=== PATIENT | female | born 1965 | race Caucasian/White ===

== ENCOUNTER 2021-04-04 08:32 | Emergency (ER) | payer BC, SELFPAY ==
[2021-04-04] VITALS (28 sets, daily range): BP systolic 128–160; BP diastolic 67–90; PULSE 60–90; RESP 14–22; TEMP 36.6; O2SAT 95–99
--- NOTE | 2021-04-04 08:30 | RT.EKG_ITS ---
APPROVED REPORT Exam: Resting ECG Reason for Exam: chest pain Patient Location: E HR:83 bpm ECG Measurements Heart Rate 83 AXIS W[place] 139 P 55 QRSd 94 QRS 26 QT 387 T 40 QTc 455 Conclusion Sinus rhythm...normal P axis, V-rate 60- 99 STD precordial leads, no prior, no STEMI, non-diagnostic EKG I have reviewed and interpreted ECG and agree with software generated interpretation.
[2021-04-04 08:57] LABS: Abs Immature Grans 0.01 10^3/uL (0.0-0.06); Absolute Basophil Count 0.04 10^3/uL (0.0-0.2); Absolute Eosinophil Count 0.07 10^3/uL (0.0-0.7); Absolute Lymphocyte Count 1.57 10^3/uL (1.2-3.4); Absolute Monocyte Count 0.58 10^3/uL (0.1-0.8); Basophils % 0.6; Eosinophils % 1.1; HCT 43.4 % (36.0-46.0); Immature Grans % 0.2; Lymphocytes % 24.3; MCH 28.3 pg (27.0-33.0); MCHC 32.3 % (32.0-36.0); MCV 87.9 fL (80-95); Neutrophils % 64.8; Nucleated RBC 0 %; Platelet Count 314 10^3/uL (130-400); RBC 4.94 10^6/uL (3.93-5.22); RDW 12.6 % (11.7-14.6); RDW-SD 40.6 fL; WBC 6.47 10^3/uL (4.4-10.8)
--- NOTE | 2021-04-04 09:00 | DI.RAD_ITS ---
Exam(s) XR PORTABLE CHEST AP EXAM: XR PORTABLE CHEST AP CLINICAL HISTORY: chest pain. TECHNIQUE: 2D digital imaging was performed. COMPARISON: No exams were available for comparison FINDINGS: Heart size is upper normal. The mediastinum is not widened. Lungs are clear. No infiltrates nor obvious pleural effusions. IMPRESSION: No acute pulmonary findings on this single AP portable view of the chest. DATA REPOSITORY: RADIATION DOSE DELIVERED: All CT scans at this facility use at least one of these dose optimization techniques: automated exposure control; mA and/or kV adjustment per patient size (includes targeted e xams where dose is matched to clinical indication); or iterative reconstruction.
[2021-04-04 09:15] LABS: ALT 36 U/L (14-59); AST 30 U/L (15-37); Albumin 4.2 g/dL (3.4-5.0); Alkaline Phosphatase 99 U/L (46-116); Anion Gap 9.5 mmol/L (3-11); BUN 15 mg/dL (7-18); Bilirubin, Total 0.6 mg/dL (0.2-1.0); CO2 28.5 mmol/L (21.0-32.0); Chloride 102 mmol/L (98-107); Estimated GFR 57.35 (mL/min/1.73m2); Glucose 97 mg/dL (74-106); Sodium 140 mmol/L (136-145); Total Protein 8.2 g/dL (6.4-8.2)
[2021-04-04 09:16] LABS: Troponin I < 0.05 ng/mL (<0.06)
--- NOTE | 2021-04-04 09:36 | ED.GENADUL_ITS ---
Discharge Plan Disposition Patient Disposition: HOME Condition: Good Discharge Details Clinical Impression: Chest pain Primary Care Provider: Amada Velazquez ED Provider: Blanca Denis Home Meds and New Rx's Prescriptions: Continued levothyroxine 112 mcg Tablet 112 mcg PO DAILY RF: 0 Discharge Instructions Instructions: Chest Pain (ED) Additional Instructions: Please go to your stress test, they will call you to schedule it Please follow-up with your primary care physician and let them know that you have been having chest discomfort, you may see you in follow-up Should you have exertional chest pain, worsening shortness of breath, nausea, vomiting, please return to the emergency room for reassessment Please have your blood pressure rechecked by your primary care physician Stand Alone Forms: Work Release Medical Decision Making Patient appears well, she has had 2 - troponins, her EKGs are reassuring x2 She has had the pain consistently for 7 days and this is very atypical presentation for coronary artery disease Heart score of 1 Given low threshold to return should she have new or worsening complaints Scheduled for outpatient stress test referred to primary care physician follow- up in the next 24 to 48 hours and to return should she have new or worsening complaints D-dimer 507, using age-adjusted no indication for CT scan at this time Chest x-ray per radiology interpretation in my review does not show any mediastinum, pneumothorax, or any additional pathology Medical Records Medical records reviewed: Yes I reviewed the patient's medical records. Lab Data Lab results reviewed: Yes I reviewed the patient's lab results. ECG Data Prior ECG tracings: available for review HPI General Mode of arrival: ambulatory . Date/Time Provider Initiated Documentation: 04/04/21 08:36 . Limitations to Documentation: no limitations . Information obtained by: patient . HPI Narrative: This 65-year-old female presents with report of chest pain persistent for the past week. She states that it is constant with occasional exacerbations. She states it is in her back and will radiate to the front. She denies a tearing sensation or radiation additionally,. She denies any numbness or tingling. She denies any associated shortness of breath or diaphoresis. She denies any nausea or vomiting. She denies any chills. She does present with pulmonary is perhaps related to position. She denies history of hypertension, hyperlipidemia, has not smoked tobacco in 12 years. Denies any illicit drug use. Denies any early cardiac family history below the age 65. Denies any exertional. Describes it as a pain that is partially alleviated with pressure to the affected area. Related Data Home Medications Medication Instructions Recorded Confirmed levothyroxine 112 mcg PO DAILY 04/04/21 04/04/21 Allergies Allergy/AdvReac Type Severity Reaction Status Date / Time erythromycin base Allergy Intermediate Other (See Unverified 04/04/21 09:10 Comment) aspirin AdvReac Intermediate Other (See Unverified 04/04/21 09:10 Comment) General Stated Complaint: Chest Pain AMANDA: 2 Review of Systems All systems reviewed & are unremarkable except as noted in HPI and below PFSH Surgical History (Updated 04/04/21 @ 08:49 by Juan Griffin NP) History of hysterectomy History of thyroidectomy Social History Smoking/Tobacco Use Status: Former Tobacco Use Tobacco: How many years used: 10 Smoking risk assessment performed?: Yes Substance use type: does not use Do you feel safe at home: Yes Do you feel safe in your relationship?: Yes Additional Social history: as a child, not as an adult Exam Const General: cooperative and comfortable Orientation: alert and oriented x3 Eyes Pupils: PERRL Chest Chest: normal inspection of the chest Resp Effort & Inspection: normal respiratory effort Auscultation: clear to auscultation bilaterally Cardio Rate: regular rate Rhythm: regular rhythm GI Other: No abdominal tenderness, no rebound or guarding, no tenderness Back/Spine/Pelvis Back/spine/pelvis image: 1. Mild reproducible tenderness 2. Skin General skin exam: no rashes or lesions noted Neuro General: patient alert and patient oriented x3 Extrem General: normal to inspection Other: No calf swelling or tenderness Psych Appearance: grossly normal Course Vital Signs Vital signs: Vital Signs Temperature 36.6 C 04/04/21 08:36 Pulse 90 04/04/21 08:36 Respiratory Rate 20 04/04/21 08:36 Blood Pressure 160/90 H 04/04/21 08:36 Temperature 36.6 C 04/04/21 08:36 Temperature Source Temporal Artery Scan 04/04/21 08:36 Pulse 90 04/04/21 08:36 Respiratory Rate 16 04/04/21 08:57 Respiratory Effort 04/04/21 08:57 Respiratory Depth Normal 04/04/21 08:57 Respiratory Pattern Normal 04/04/21 08:57 Blood Pressure 160/90 H 04/04/21 08:36 Blood Pressure Position Sitting 04/04/21 08:36 Oxygen Delivery Method Room Air 04/04/21 08:36 Oxygen Flow Rate 0 04/04/21 08:36 Pain Level 2 04/04/21 08:57 Lab/Test Results Lab/Test Results: Laboratory Tests Range/Units 04/04/21 04/04/21 08:45 08:45 WBC (4.4-10.8) 10^3/uL 6.47 RBC (3.93-5.22) 10^6/uL 4.94 Hgb (11.2-15.7) g/dL 14.0 Hct (36.0-46.0) % 43.4 MCV (80-95) fL 87.9 MCH (27.0-33.0) pg 28.3 MCHC (32.0-36.0) % 32.3 RDW (11.7-14.6) % 12.6 Plt Count (130-400) 10^3/uL 314 MPV (8.0-11.0) fL 10.0 Immature Gran % 0.2 Neutrophils % 64.8 Lymphocytes % 24.3 Monocytes % 9.0 Eosinophils % 1.1 Basophils % 0.6 Nucleated RBC % % 0 Absolute Neutrophils (1.2-6.7) 10^3/uL 4.20 Absolute Lymphocytes (1.2-3.4) 10^3/uL 1.57 Absolute Monocytes (0.1-0.8) 10^3/uL 0.58 Absolute Eosinophils (0.0-0.7) 10^3/uL 0.07 Absolute Basophils (0.0-0.2) 10^3/uL 0.04 Sodium (136-145) mmol/L 140 Potassium (3.5-5.1) mmol/L 4.0 Chloride (98-107) mmol/L 102 Carbon Dioxide (21.0-32.0) mmol/L 28.5 Anion Gap (3-11) mmol/L 9.5 BUN (7-18) mg/dL 15 Creatinine (0.55-1.02) mg/dL 1.0 Estimated GFR/1.73 m2 (mL/min/1.73m2) 57.35 Glucose (74-106) mg/dL 97 Calcium (8.5-10.1) mg/dL 9.0 Magnesium (1.8-2.4) mg/dL 2.0 Total Bilirubin (0.2-1.0) mg/dL 0.6 AST (15-37) U/L 30 ALT (14-59) U/L 36 Alkaline Phosphatase (46-116) U/L 99 Troponin I (<0.06) ng/mL < 0.05 Total Protein (6.4-8.2) g/dL 8.2 Albumin (3.4-5.0) g/dL 4.2 PAWSS Have you Been Recently Intoxicated or Drunk Within the Last 30 days?: No Have you Ever Experienced Previous Episodes of Alcohol Withdrawal?: No Have you ever Experienced Withdrawal Seizures?: No Have you ever Experienced Delirium Tremens(DT)s?: No Have you ever undergone Alcohol Rehabilitation Treatment (i.e, inpt ot outpatient treatment programs)?: No Have you ever Experienced Blackouts?: No Have you ever Combined Alcohol with other Downers within the last 90 days?: No Have you ever Combined Alcohol with any other Substance of Abuse during the last 90 days?: No Positive Blood Alcohol level on Presentation? [PCS.BAL]: No Evidence of Increased Autonomic Activity (i.e. HR>120, tremor, sweating, agitation, nausea)?: No Result: 0
[2021-04-04] MEDS: Ketorolac 15 MG/ML VIAL IVP (09:42)
[2021-04-04] MEDS: Orphenadrine 60 MG/2 ML VIAL IVP (09:42)
[2021-04-04 09:49] LABS: TSH 0.83 uIU/mL (0.36-3.74)
[2021-04-04 10:00] LABS: D-Dimer 507 ng/mlFEU (<500)
--- NOTE | 2021-04-04 11:15 | RT.EKG_ITS ---
APPROVED REPORT Exam: Resting ECG Reason for Exam: chest pain Patient Location: E HR:65 bpm ECG Measurements Heart Rate 65 AXIS [place] 145 P 53 QRSd 86 QRS 29 QT 414 T 31 QTc 422 Conclusion Sinus rhythm...normal P axis, V-rate 60- 99 Ventricular premature complex...V complex w/ short R-R interval no STEMI, non-diagnostic EKG I have reviewed and interpreted ECG and agree with software generated interpretation.
[2021-04-04 11:59] LABS: Troponin I < 0.05 ng/mL (<0.06)
== END 2021-04-04 12:31 | disposition home or self-care (01) ==
PROVIDERS: Nurse Practitioner Family; Emergency Provider Physician Assistant; PCP Family Medicine
DX: R07.9 Chest pain, unspecified (principal); M54.89 Other dorsalgia
CPT/HCPCS: 80053; 93005; 96374; 96375; 99284; J2360; 71045; 83735; 84443; 84484; 85025; 85379; 93010; 99283; J1885

== ENCOUNTER 2023-11-17 08:18 | Emergency (ER) | payer OTHER, SELFPAY ==
[2023-11-17] VITALS (25 sets, daily range): BP systolic 161–199; BP diastolic 67–97; PULSE 61–94; RESP 13–25; TEMP 36.8; O2SAT 96–99
--- NOTE | 2023-11-17 08:15 | RT.EKG_ITS ---
APPROVED REPORT Exam: Resting ECG Reason for Exam: Chest Pain Patient Location: E HR:86 bpm ECG Measurements Heart Rate 86 AXIS W[place] 135 P 53 QRSd 87 QRS 16 QT 368 T 56 QTc 441 Conclusion Sinus rhythm...normal P axis, V-rate 60- 99
[2023-11-17] MEDS: Normal Saline Flush 10 ML SYR IVP (08:29)
--- NOTE | 2023-11-17 08:30 | DI.CT_ITS ---
Exam(s) CT THORAX CTA EXAM: CT THORAX CTA CLINICAL HISTORY: chest and upper back pain, ?dissection. TECHNIQUE: Imaging Protocol: Axial CT angiography was performed with multi-slice acquisition and mu lti-planar and/or 3D reconstructions. CONTRAST MATERIAL: Intravenous: Omnipaque 350 contrast volume:98 mL COMPARISON: CR XR PORTABLE CHEST AP from 04/04/2021 FINDINGS: Tracheobronchial tree: Patent where visualized. Pulmonary parenchyma: No consolidation or dominant measurable mass. No architectural distortion. Pulmonary Arteries: No evidence of filling defect to suggest pulmonary emboli. Mediastinum and [place]: No dominant adenopathy or fluid collection. The esophagus is unremarkable. Visualized thyroid gland: There are surgical clips seen in the thyroid bed. Pleura: No effusion or pneumothorax. Heart: The heart is not dilated. Coronary artery calcifications are present. No pericardial effusion . Aorta: Thoracic aorta non-dilated. No evidence of dissection. Atherosclerotic calcification is presen t. Upper abdomen: Simple cysts are seen in the kidneys. No follow-up is recommended. Soft tissues: Unremarkable. Bones: Within normal limits for the patient's age. IMPRESSION: 1. No evidence of pulmonary embolism, thoracic aortic dissection or aneurysm. 2. No acute pulmonary process. RADIATION DOSE DELIVERED: 494.17mGy.cm Total DLP 494.17mGy.cm Total DLP DATA REPOSITORY: All CT scans at this facility are submitted to the National Radiology Data Registry (NRDR) Dose Index Registry (DIR) with the [employer] (A[employer]). RADIATION OPTIMIZATION: All CT scans at this facility use at least one of these dose optimization te chniques: automated exposure control; mA and/or kV adjustment per patient size (includes targeted exa ms where dose is matched to clinical indication); or iterative reconstruction.
--- NOTE | 2023-11-17 08:31 | ED.GENADUL_ITS ---
Discharge Plan Disposition Patient Disposition: Home Condition: Stable Discharge Details Clinical Impression: Chest pain Primary Care Provider: Amada Velazquez ED Provider: Cristian Rodrigues Home Meds and New Rx's Prescriptions: Continued levothyroxine 112 mcg Tablet 112 mcg PO DAILY Discharge Instructions Instructions: Chest Pain (ED) Additional Instructions: Your blood work and CAT scan did not show any concerning findings. Take 0.5mg or 1mg as needed lorazepam if needed for anxiety/stress Follow-up with your primary care provider within 1 to 2 weeks If you feel more ill, have severe worsening pain or new symptoms such as high fevers return to the emergency department for reevaluation HPI General Mode of arrival: ambulatory . Date/Time Provider Initiated Documentation: 11/17/23 08:19 . Limitations to Documentation: no limitations . Information obtained by: patient . History of Present Illness 57 year old F presents to the emergency department with the chief complaint of chest pain, described as moderate, Quality is described as sharp, and is localized to the chest. Patient reports radiation to back. Patient started experiencing this day(s) (3) and it has been intermittent. No relieving factors improve symptom(s), No exacerbating factors reported . Patient notes denies cough, fever/chills and shortness of breath. Patient did receive the following treatments prior to arrival, none Related Data Home Medications Medication Instructions Recorded Confirmed levothyroxine 112 mcg tablet 112 mcg PO DAILY 04/04/21 11/17/23 Allergies Allergy/AdvReac Type Severity Reaction Status Date / Time erythromycin base Allergy Intermediate Other (See Unverified 11/17/23 08:26 Comment) aspirin AdvReac Intermediate Other (See Unverified 11/17/23 08:26 Comment) General Stated Complaint: Chest Pain AMANDA: 2 Review of Systems All systems reviewed & are unremarkable except as noted in HPI and below Constitutional Constitutional: Denies chills, Denies fever(s) and Denies weakness Cardiovascular Cardiovascular: Reports chest pain and Denies dyspnea Respiratory Respiratory: Denies cough and Denies dyspnea Gastrointestinal Gastrointestinal: Denies abdominal pain, Denies nausea and Denies vomiting Musculoskeletal Musculoskeletal: Denies joint swelling Neurologic Neurologic: Denies weakness Exam Const General: no acute distress Orientation: alert HENMT Head: normal to inspection Ears: external ears normal General nose exam: external nose normal Mouth: moist mucous membranes Eyes General: appearance normal, both eyes and all related structures Neck Neck: normal visual inspection Resp Effort & Inspection: normal respiratory effort and able to speak in complete sentences Auscultation: clear to auscultation bilaterally Cardio Rate: regular rate Heart Sounds: no murmurs GI Palpation: soft and nontender Skin General skin exam: no rashes or lesions noted Neuro General: patient alert and patient oriented x3 Extrem General: normal to inspection Psych Mental Status: mental status grossly normal Course Vital Signs Vital signs: Vital Signs Temperature 36.8 C 11/17/23 08:21 Pulse 94 H 11/17/23 08:21 Respiratory Rate 16 11/17/23 08:21 Blood Pressure 199/89 H 11/17/23 08:21 Pulse Oximetry 96 11/17/23 08:21 Temperature 36.8 C 11/17/23 08:21 Temperature Source Oral 11/17/23 08:21 Pulse 94 H 11/17/23 08:21 Respiratory Rate 16 11/17/23 08:26 Respiratory Effort Normal 11/17/23 08:26 Respiratory Depth Normal 11/17/23 08:26 Respiratory Pattern Normal 11/17/23 08:26 Blood Pressure 199/89 H 11/17/23 08:21 Blood Pressure Position Sitting 11/17/23 08:21 Pulse Oximetry 96 11/17/23 08:21 Oxygen Delivery Method Room Air 11/17/23 08:21 Oxygen Flow Rate 0 11/17/23 08:21 Pain Level 6 11/17/23 08:26 Medical Decision Making 57-year-old female with a history of hypothyroidism, no prior cardiac history, comes in with complaints of few days of chest pain rating to the back. She states that she is under a lot of stress which is an increase in her pain. States she is taking care of her daughters 3 kids that are all under the age of 8 by herself. She is tearful during the exam. He is alert and oriented speaking clearly, denies any pain with exertion. She does have a dull frontal headache as well. She has clear lung sounds, no murmurs, no JVD, no leg swelling or calf tenderness. Is noted to be hypertensive but is also very anxious appearing. Given her complaint we will proceed with troponin, CBC, CMP, and obtain a CTA of the chest given she states she has pain rating to the back. She has known hypoxia, no evidence of DVT on exam so doubt PE. Patient feels better after oral dose of Ativan, labs unremarkable, CT on my read shows no acute findings to be read turnaround time currently is over 150 minutes. Will obtain delta troponin. Patient stable, delta troponin negative and CT read as negative as well. Given reassuring workup and improvement with Ativan feel she is stable for discharge to follow-up with her primary care provider, return precautions given Differential Diagnosis Differential Diagnosis: ACS, dissection, anxiety/stress Medical Records Medical records reviewed: Yes I reviewed the patient's medical records. Imaging Data Radiologic Study: Attestation: I personally reviewed and interpreted this imaging study as follows: Imaging: CT Scan My impression: no acute findings Radiologist's impression: no acute findings Lab Data Lab results reviewed: Yes I reviewed the patient's lab results. ECG Data Attestation: I personally reviewed and interpreted this ECG (s) as follows: Prior ECG tracings: available for review Interpretation: Sinus rhythm, rate of 86, AL 135, no STEMI Quality:SDOH Health Related Social Needs: No Data to Display PFSH All Active Problems (Updated 11/17/23 @ 11:19 by Cristian Rodrigues MD) Chest pain (Acute) Surgical History (Updated 04/04/21 @ 08:49 by Juan Griffin NP) History of hysterectomy History of thyroidectomy Social History Smoking/Tobacco Use Status: Former Tobacco Use Tobacco: How many years used: 10 Smoking risk assessment performed?: Yes Alcohol Intake: never Drug use: Never Substance use type: does not use Housing: house Do you feel safe at home: Yes Do you feel safe in your relationship?: Yes Additional Social history: as a child, not as an adult
[2023-11-17 08:34] LABS: Abs Immature Grans 0.02 10^3/uL (0.0-0.06); Absolute Basophil Count 0.03 10^3/uL (0.0-0.2); Absolute Eosinophil Count 0.07 10^3/uL (0.0-0.7); Absolute Lymphocyte Count 1.59 10^3/uL (1.2-3.4); Absolute Monocyte Count 0.45 10^3/uL (0.1-0.8); Absolute Neutrophil Count 4.05 10^3/uL (1.2-6.7); Basophils % 0.5 %; Eosinophils % 1.1 %; HGB 14.7 g/dL (11.2-15.7); Immature Grans % 0.3 %; Lymphocytes % 25.6 %; MCH 28.4 pg (27.0-33.0); MCHC 32.7 % (32.0-36.0); MCV 87 fL (80-95); Monocytes % 7.2 %; Neutrophils % 65.3 %; Platelet Count 321 10^3/uL (130-400); RBC 5.17 10^6/uL (3.93-5.22); RDW 13.2 % (11.7-14.6); RDW-SD 42.3 fL; WBC 6.21 10^3/uL (4.4-10.8)
[2023-11-17] MEDS: LORazepam 0.5 MG TAB (08:41)
[2023-11-17] MEDS: Normal Saline - Diluent 50 ML VIAL IJ (08:50)
[2023-11-17] MEDS: Omnipaque 350 MG/ML 100 ML BTL IJ (08:51)
[2023-11-17 09:05] LABS: ALT 35 U/L (14-59); AST 25 U/L (15-37); Albumin 4.2 g/dL (3.4-5.0); Alkaline Phosphatase 95 U/L (46-116); Anion Gap 9.7 mmol/L (3-11); BUN 15 mg/dL (7-18); Bilirubin, Total 0.5 mg/dL (0.2-1.0); CO2 28.3 mmol/L (21.0-32.0); Chloride 102 mmol/L (98-107); Glucose 98 mg/dL (74-106); Lipase 54 U/L (16-77); Potassium 3.9 mmol/L (3.5-5.1); Sodium 140 mmol/L (136-145); TSH (W/Ref FT4) 4.19 uIU/mL (0.36-3.74); Total Protein 8.2 g/dL (6.4-8.2); Troponin I < 50 ng/L (< or =60)
[2023-11-17 09:22] LABS: FREE T4 1.35 ng/dL (0.76-1.46)
[2023-11-17 11:53] LABS: Troponin I < 50 ng/L (< or =60)
[2023-11-17] MEDS: LORazepam 1 MG TAB PO ×3 (12:13→12:14)
== END 2023-11-17 12:23 | disposition home or self-care (01) ==
PROVIDERS: Emergency Provider Emergency Medicine; PCP Family Medicine
DX: R07.9 Chest pain, unspecified (principal); E03.9 Hypothyroidism, unspecified; Z87.891 Personal history of nicotine dependence
CPT/HCPCS: 71275; 80053; 83690; 93005; 99285; 83735; 84439; 84443; 84484; 85025; 93010; 99284; J3490

== ENCOUNTER 2024-02-17 14:16 | Emergency (ER) | payer OTHER, SELFPAY ==
[2024-02-17 14:25] VITALS: BP 128/79; PULSE 98; RESP 16; TEMP 37.2; O2SAT 98
--- NOTE | 2024-02-17 14:30 | DI.RAD_ITS ---
Exam(s) XR TIB/FIB LT EXAM: XR TIB/FIB LT CLINICAL HISTORY: Injury. TECHNIQUE: 2D digital imaging was performed. COMPARISON: No exams were available for comparison FINDINGS: Two views. No evidence of fracture nor radiopaque foreign body. Bone density normal. No osseous lesions. IMPRESSION: No acute osseous findings. DATA REPOSITORY: RADIATION DOSE DELIVERED:
--- NOTE | 2024-02-17 14:33 | W.ED.GENAD ---
Discharge Plan Disposition Patient Disposition: Home Condition: Stable Discharge Details Clinical Impression: Crushing injury of left lower extremity Primary Care Provider: Amada Velazquez ED Provider: Nusrat Mckeon Home Meds and New Rx's Prescriptions: No Action levothyroxine 112 mcg Tablet 112 mcg PO DAILY fluoxetine [Prozac] 20 mg capsule 20 mg PO DAILY Discharge Instructions Instructions: Crush Injury Additional Instructions: No evidence of fracture or broken bones on the Xray, Please keep elevated when sitting or lying down, apply ice to area three times a day. Wrap with dio wrap. Return to the ER for any problems with circulation, severe increase in pain not relieved by Tylenol or ibuprofen or concerns. Rest ice compression elevation weightbearing advance as tolerated. Please take Tylenol or Ibuprofen with food every 4-6 hours as needed for pain and swelling. Follow up with primary care provider in 3-5 days. Return to ED sooner if any worsening or concerns. Referrals: Amada Velazquez [Primary Care Provider] - 5 days Discharge Data Discharge Date/Time-TO BE ENTERED AT DEPARTURE: 02/17/24 15:59 HPI General Mode of arrival: ambulatory. Date/Time Provider Initiated Documentation: 02/17/24 14:24. Limitations to Documentation: no limitations. Information obtained by: patient, RN notes reviewed and old records reviewed. 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 distal CMS intact. No other injuries or complaints at this time. Some superficial abrasions noted. Related Data Home Medications ?Medication ?Instructions ?Recorded ?Confirmed levothyroxine 112 mcg tablet 112 mcg PO DAILY 04/04/21 02/17/24 fluoxetine 20 mg capsule (Prozac) 20 mg PO DAILY 02/17/24 02/17/24 Allergies Allergy/AdvReac Type Severity Reaction Status Date / Time erythromycin base Allergy Intermediate Other (See Unverified 02/17/24 14:28 Comment) aspirin AdvReac Intermediate Other (See Unverified 02/17/24 14:28 Comment) General Stated Complaint: Orthopedic MAANDA: 4 Review of Systems All systems reviewed & are unremarkable except as noted in HPI and below Exam Const General: cooperative and healthy appearing Nutritional Appearance: average body habitus Orientation: alert, awake and oriented x3 Resp Effort & Inspection: normal respiratory effort and able to speak in complete sentences Cardio Rate: regular rate Rhythm: regular rhythm Heart Sounds: S1 normal and S2 normal Extrem General: normal to inspection and full ROM Right lower extremity: normal to inspection Left lower extremity: normal capillary refill and lower leg Details: tenderness, localized swelling, no edema and abrasion; no erythema and no deformity Course Vital Signs Vital signs: Vital Signs Temperature 37.2 C 02/17/24 14:25 Pulse 98 H 02/17/24 14:25 Respiratory Rate 16 02/17/24 14:25 Blood Pressure 128/79 02/17/24 14:25 Pulse Oximetry 98 02/17/24 14:25 Temperature 37.2 C 02/17/24 14:25 Temperature Source Skin 02/17/24 14:25 Pulse 98 H 02/17/24 14:25 Respiratory Rate 16 02/17/24 14:25 Respiratory Effort Normal, Non-Labored 02/17/24 14:27 Blood Pressure 128/79 02/17/24 14:25 Blood Pressure Position Sitting 02/17/24 14:25 Pulse Oximetry 98 02/17/24 14:25 Oxygen Delivery Method Room Air 02/17/24 14:25 Oxygen Flow Rate 0 02/17/24 14:25 Pain Level 9 02/17/24 14:25 Medical Decision Making 58 year old female presents with LLE pain after 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 distal CMS intact. No other injuries or complaints at this time. Some superficial abrasions noted. XR Tib fib ordered, ice pack On exam no evidence of compartment syndrome, distal pulses palpable. No evidence of Fracture, will give home care instructions and instruct to take Tylenol and Ibuprofen and return if worsening swelling, or pain. Will instruct on crush injury symptoms. Patient given crutches at discharge. This text was generated using [employer] dictation system, please disregard any oddities of phrase or misspellings. Differential Diagnosis Differential Diagnosis: Occult Fracture, Fracture, Hematoma, Crush Injury, Imaging Data Radiologic Study: Imaging: X-Ray Radiologist's impression: EXAM: XR TIB/FIB LT CLINICAL HISTORY: Injury. TECHNIQUE: 2D digital imaging was performed. COMPARISON: No exams were available for comparison FINDINGS: Two views. No evidence of fracture nor radiopaque foreign body. Bone density normal. No osseous lesions. IMPRESSION: No acute osseous findings. Quality:SDOH Health Related Social Needs: No Data to Display PFSH All Active Problems (Updated 02/17/24 @ 15:46 by Nusrat Mckeon NP) Crushing injury of left lower extremity (Acute) Chest pain (Acute) Surgical History (Updated 04/04/21 @ 08:49 by Juan Griffin NP) History of hysterectomy History of thyroidectomy Social History Smoking/Tobacco Use Status: Former Tobacco Use Tobacco: How many years used: 10 Smoking risk assessment performed?: Yes Alcohol Intake: never Drug use: Never Substance use type: does not use Housing: house Do you feel safe at home: Yes Do you feel safe in your relationship?: Yes Additional Social history: as a child, not as an adult PAWSS Have you Been Recently Intoxicated or Drunk Within the Last 30 days?: No Have you Ever Experienced Previous Episodes of Alcohol Withdrawal?: No Have you ever Experienced Withdrawal Seizures?: No Have you ever Experienced Delirium Tremens(DT)s?: No Have you ever undergone Alcohol Rehabilitation Treatment (i.e, inpt ot outpatient treatment programs)?: No Have you ever Experienced Blackouts?: No Have you ever Combined Alcohol with other Downers within the last 90 days?: No Have you ever Combined Alcohol with any other Substance of Abuse during the last 90 days?: No Positive Blood Alcohol level on Presentation? [PCS.BAL]: No Evidence of Increased Autonomic Activity (i.e. HR>120, tremor, sweating, agitation, nausea)?: No Result: 0
== END 2024-02-17 15:59 | disposition home or self-care (01) ==
PROVIDERS: Emergency Provider Registered Nurse Emergency; PCP Family Medicine
DX: S87.82XA Crushing injury of left lower leg, initial encounter (principal); W23.0XXA Caught, crushed, jammed, or pinched between moving objects, initial encounter
CPT/HCPCS: 99283; 73590